=== PATIENT | female | born 1935 | race Asian ===

== ENCOUNTER 2016-11-17 14:29 | Emergency (ER) | payer MEDICARE, OTHER ==
[~2016-11-17] VITALS: Ht 152.4 cm; Wt 60.0 kg
[~2016-11-17 14:29] MED LIST: ASPI81TA2 PO; METO50TA5 PO
[2016-11-17] MEDS ORDERED: HYDR25TA PO (14:38)
[2016-11-17] MEDS ORDERED: CARV6 PO (14:38)
[2016-11-17] MEDS ORDERED: RANI150T7 PO (14:38)
[2016-11-17] MEDS ORDERED: AMLO-512 PO (14:38)
[2016-11-17] MEDS ORDERED: LOSA50TA37 PO (14:38)
[2016-11-17] MEDS ORDERED: SIMV-259 PO (14:38)
[2016-11-17] MEDS ORDERED: ACETAMINOPHEN 325 MG TABLET PO ONE (15:00)
[2016-11-17 15:01] VITALS: BP 155/74
== END 2016-11-17 15:14 | disposition home or self-care (01) ==
LOC: EMS 14:30
DX: R51 Headache (principal); G89.29 Other chronic pain; I10 Essential (primary) hypertension; Z79.82 Long term (current) use of aspirin
CPT/HCPCS: 99283